=== PATIENT | female | born 1990 | race Caucasian/White ===

== ENCOUNTER 2016-10-06 09:42 | Emergency (ER) | payer OTHER ==
[~2016-10-06] VITALS: Ht 160 cm; Wt 74.8 kg
[~2016-10-06 09:42] MED LIST: PREN1TAB11 PO; UNIS25TA2 PO
[2016-10-06] MEDS ORDERED: KETOROLAC 30 MG/ML VIAL (J1885) IV ONE (10:15)
[2016-10-06] MEDS ORDERED: KETOROLAC 30 MG/ML VIAL (J1885) As Ordered ONE (10:16)
--- NOTE | 2016-10-06 12:04 | REP ---
PELVIC ULTRASOUND: Real-time sonographic evaluation of the pelvis is performed utilizing transabdominal and endovaginal technique. The urinary bladder measures 4.7 x 1.6 x 5.5 cm. The uterus measures 8.2 x 4.1 x 6.1 cm. The endometrial thickness is 10 mm. No endometrial fluid collection. The right ovary measures 4.2 x 2.6 x 3.8 cm and the left ovary 3.7 x 2.2 x 2.5 cm. Two complex cystic structures in the right ovary measure 2.1 x 2.2 x 2.2 cm and 2.9 x 1.5 x 2.3 cm. There is mild free fluid. There is no evidence of ovarian torsion with blood flow seen in each ovary with duplex Doppler evaluation. IMPRESSION: Two small complex cystic structures in the right ovary may represent complex follicles. Mild free fluid. No torsion. Signed by Enrrique Cervantes MD 10/06/2016 05:03 P
[2016-10-06] MEDS ORDERED: ULTR50TA PO (12:16)
[2016-10-06 12:31] VITALS: BP 133/81
== END 2016-10-06 12:32 | disposition home or self-care (01) ==
LOC: M ED 10:27
DX: R10.2 Pelvic and perineal pain (principal); Z79.899 Other long term (current) drug therapy
CPT/HCPCS: 76830; 76856; 81001; 81025; 87210; 87491; 87591; 93976; 96374; 96376; 99284; J1885

== ENCOUNTER 2017-07-16 12:45 | Emergency (ER) | payer OTHER ==
[~2017-07-16] VITALS: Ht 160 cm; Wt 70.5 kg
[~2017-07-16 12:45] MED LIST changes: +ULTR50TA8 PO
[2017-07-16] MEDS ORDERED: TYLE325T5 PO (12:53)
[2017-07-16 14:47] VITALS: BP 131/69
--- NOTE | 2017-07-16 14:47 | REP ---
FIRST TRIMESTER OB ULTRASOUND: 07/16/2017 CLINICAL HISTORY: Pelvic cramping. 7 weeks 3 days by LMP. Transabdominal imaging is utilized. Uterus is slightly retroflexed. There is a gestational sac in the fundus. Within the gestational sac, is a pole with a crown-rump length of 1.1 cm, corresponding to 7 weeks 2 days which would give an EDC of 03/02/2018. heart activity noted at 162. No subchorionic bleed identified. No mass in the adnexal region. No free fluid in the cul-de-sac or adjacent the adnexa. IMPRESSION: 1. Single intrauterine gestation at 7 weeks 2 days by crown-rump length which would give an EDC of 03/02/2018, by LMP, EDC 03/01/2018. 2. Heart rate 162 and regular. No subchorionic bleed. No adnexal mass or free fluid. Signed by Mansoor Vallecillo MD 07/16/2017 06:56 P
== END 2017-07-16 14:58 | disposition home or self-care (01) ==
LOC: M ED 12:45
DX: O26.891 Other specified pregnancy related conditions, first trimester (principal); R10.2 Pelvic and perineal pain; M54.5 Low back pain; Z3A.01 Less than 8 weeks gestation of pregnancy; O09.291 Supervision of pregnancy with other poor reproductive or obstetric history, first trimester; Z98.890 Other specified postprocedural states

== ENCOUNTER → 2017-09-11 | Outpatient (REF) | payer OTHER | LOC: M SFHCLERA 13:53 | DX: R81 Glycosuria (principal) | CPT/HCPCS: 87086 ==

== ENCOUNTER 2017-12-22 12:46 | Outpatient (CLI) | payer OTHER ==
[2017-12-22] MEDS: ACETAMINOPHEN 500 MG TAB PO (14:06)
== END 2017-12-22 16:30 | disposition home or self-care (01) ==
LOC: M LDO 12:46
DX: O26.893 Other specified pregnancy related conditions, third trimester (principal); R10.30 Lower abdominal pain, unspecified; Z3A.30 30 weeks gestation of pregnancy
CPT/HCPCS: 76815

== ENCOUNTER 2018-01-22 08:02 | Outpatient (CLI) | payer OTHER | END 2018-01-22 08:58 | disposition home or self-care (01) | LOC: M LDO 08:02 | DX: Z36.89 Encounter for other specified antenatal screening (principal); Z3A.00 Weeks of gestation of pregnancy not specified | CPT/HCPCS: 59025 ==

== ENCOUNTER 2018-02-11 15:40 | Inpatient (IN) | payer OTHER ==
[2018-02-11] MEDS: LACTATED RINGER'S 1000 ML IV (17:45)
[2018-02-11 18:05] LABS: HEMATOCRIT 35.6 % (36.0-47.0); HEMOGLOBIN 11.9 g/dl (12.0-15.5); MEAN CORPUSCULAR HGB CONC 33.4 g/dl (32.0-36.5); MEAN CORPUSCULAR VOLUME 92.7 fl (80.0-96.0); PLATELET COUNT, AUTOMATED 127 10^3/uL (150-450); RED BLOOD COUNT 3.84 10^6/uL (4.00-5.40); RED CELL DISTRIBUTION WIDTH 13.8 % (11.5-14.5); WHITE BLOOD COUNT 17.5 10^3/uL (4.0-10.0)
[2018-02-11] MEDS: LR 1,000 ML IV (18:09)
[2018-02-11 18:10] LABS: AMORPHOUS SEDIMENT SMALL (NEGATIVE); APPEARANCE, URINE CLOUDY (CLEAR); BACTERIA, URINE AUTO NEGATIVE (NEGATIVE); BILIRUBIN, URINE AUTO NEGATIVE (NEGATIVE); BLOOD, URINE BLOOD NEGATIVE (NEGATIVE); COLOR, URINE AMBER (YELLOW); GLUCOSE, URINE (UA) AUTO 1+ mg/dL (NEGATIVE); KETONE, URINE AUTO TRACE mg/dL (NEGATIVE); LEUKOCYTE ESTERASE, URINE AUTO 1+ (NEGATIVE); MUCUS, URINE LARGE (NEGATIVE); NITRITE, URINE AUTO NEGATIVE (NEGATIVE); PROTEIN, URINE AUTO NEGATIVE (NEGATIVE); RBC, URINE AUTO 1 /HPF (0-3); SPECIFIC GRAVITY URINE AUTO 1.017 (1.002-1.035); SQUAMOUS EPITHELIAL CELL UR AU 8 /HPF (0-6); UROBILINOGEN, URINE AUTO 0.2 mg/dL (0.0-2.0); WBC, URINE AUTO 7 /HPF (0-3)
[2018-02-11 18:38] LABS: ALBUMIN 2.5 GM/DL (3.2-5.2); ALBUMIN/GLOBULIN RATIO 0.68 (1.00-1.93); ALKALINE PHOSPHATASE 100 U/L (45-117); ALT/SGPT 17 U/L (12-78); ANION GAP 8 MEQ/L (8-16); AST/SGOT 14 U/L (7-37); BILIRUBIN,TOTAL 0.3 MG/DL (0.2-1.0); BLOOD UREA NITROGEN 6 MG/DL (7-18); CARBON DIOXIDE LEVEL 23 MEQ/L (21-32); CHLORIDE LEVEL 106 MEQ/L (98-107); CREATININE FOR GFR 0.48 MG/DL (0.55-1.30); GLOMERULAR FILTRATION RATE > 60.0 (>60); GLUCOSE, FASTING 77 MG/DL (70-100); LIPASE 130 U/L (73-393); POTASSIUM SERUM 4.1 MEQ/L (3.5-5.1); SODIUM LEVEL 137 MEQ/L (136-145); TOTAL PROTEIN 6.2 GM/DL (6.4-8.2)
[2018-02-11] MEDS: ACETAMINOPHEN 325 MG TAB PO (20:12)
[2018-02-11] MEDS: AMPICILLIN SOD/SULBACTAM SOD 3 GM in D5W MINI-BAG PLUS 100 ML IV (20:25)
[2018-02-11] MEDS: GASTROGRAFIN SOLUTION 30ML PO ×2 (20:35→21:05)
[2018-02-11] MEDS ORDERED: ISOVUE-370 76% 100ML VIAL (Q9967) As Ordered (21:51)
[2018-02-11] MEDS ORDERED: OXYTOCIN 30 UNITS IN 0.9% NaCl 500ML IV BAG (J2590) As Ordered (23:29)
[2018-02-11] MEDS: OXYTOCIN DRIP 30 UNITS in APPROPRIATE DILUENT 1 EA IV (23:45)
[2018-02-12] MEDS: LR 1,000 ML IV ×2 (00:56→08:49)
[2018-02-12] MEDS: AMPICILLIN SOD/SULBACTAM SOD 3 GM in D5W MINI-BAG PLUS 100 ML IV ×4 (02:02→20:14)
[2018-02-12] MEDS: ACETAMINOPHEN TAB 650MG DOSE (2X325MG) PO ×4 (02:53→20:27)
[2018-02-12] MEDS ORDERED: FENTANYL 2MCG/ML ROPIVACAINE 0.2% IN 0.9% NACL 200ML IVBAG As Ordered (08:51)
[2018-02-12] MEDS: PRENATAL VITAMINS CHEWABLE TABLET PO (09:00)
[2018-02-12] MEDS ORDERED: ePHEDrine SULFATE 25 MG/5 ML(5MG/ML) SYRINGE As Ordered (09:56)
[2018-02-12] MEDS ORDERED: ONDANSETRON 4MG/2ML VIAL (J2405) IV ×2 (10:00→13:15)
[2018-02-12] MEDS ORDERED: ePHEDrine SULFATE 25 MG/5 ML(5MG/ML) SYRINGE IV ×2 (10:00→11:00)
[2018-02-12] MEDS ORDERED: diphenhydrAMINE INJ 50MG/ML VIAL (J1200) IV (10:00)
[2018-02-12] MEDS ORDERED: FENTANYL/ROPIVACAINE/NACL BAG 200 ML EPIDURAL (10:00)
[2018-02-12] MEDS ORDERED: EPIDURAL COMMENT XX (10:00)
[2018-02-12] MEDS ORDERED: NALOXONE INJ 0.4 MG/1 ML VIAL (J2310) IV (10:00)
[2018-02-12] MEDS ORDERED: REFRIGERATOR IV KEYS XX (10:00)
[2018-02-12] MEDS ORDERED: EPIDURAL/PCA KEYS XX (10:00)
[2018-02-12] MEDS ORDERED: LACTATED RINGER'S 1000 ML IV ×2 (10:00→11:00)
[2018-02-12] MEDS ORDERED: DOCUSATE SODIUM 100 MG CAP PO (13:15)
[2018-02-12] MEDS ORDERED: MEASLES,MUMPS,RUBELLA VACCINE INJ (MMR-II) (90707) SC (13:15)
[2018-02-12] MEDS ORDERED: METHYLERGONOVINE MALEATE 0.2 MG TAB PO (13:15)
[2018-02-12 13:24] LABS: CORD GAS ABE V -5.4; CORD GAS HCO3 V 20.5 MEQ/L; CORD GAS PCO2 V 41.5 mmHg; CORD GAS PH V 7.312 UNITS; CORD GAS PO2 V 19.9 mmHg; CORD GAS SBC V 18.9 MEQ/L; CORD GAS TCO2 V 21.8 MEQ/L
[2018-02-12] MEDS: IBUPROFEN 600 MG TAB PO (18:20)
[2018-02-13] MEDS: AMPICILLIN SOD/SULBACTAM SOD 3 GM in D5W MINI-BAG PLUS 100 ML IV ×2 (01:42→08:04)
[2018-02-13] MEDS: OXYTOCIN DRIP 30 UNITS in APPROPRIATE DILUENT 1 EA IV (03:18)
[2018-02-13] MEDS: IBUPROFEN 600 MG TAB PO ×3 (03:20→20:17)
[2018-02-13 07:00] LABS: HEMATOCRIT 34.3 % (36.0-47.0); HEMOGLOBIN 11.5 g/dl (12.0-15.5); MEAN CORPUSCULAR HEMOGLOBIN 30.7 pg (27.0-33.0); MEAN CORPUSCULAR HGB CONC 33.5 g/dl (32.0-36.5); MEAN CORPUSCULAR VOLUME 91.7 fl (80.0-96.0); PLATELET COUNT, AUTOMATED 123 10^3/uL (150-450); RED BLOOD COUNT 3.74 10^6/uL (4.00-5.40); RED CELL DISTRIBUTION WIDTH 13.9 % (11.5-14.5); WHITE BLOOD COUNT 10.1 10^3/uL (4.0-10.0)
[2018-02-13] MEDS: PRENATAL VITAMINS CHEWABLE TABLET PO (08:04)
[2018-02-13] MEDS: ACETAMINOPHEN TAB 650MG DOSE (2X325MG) PO ×3 (08:15→18:38)
[2018-02-14] MEDS: IBUPROFEN 600 MG TAB PO ×2 (02:26→08:22)
[2018-02-14] MEDS: PRENATAL VITAMINS CHEWABLE TABLET PO (08:19)
[2018-02-14] MEDS: DIBUCAINE 1% OINTMENT 30GM TOP (08:21)
== END 2018-02-14 11:30 | disposition home or self-care (01) | DRG 775 ==
LOC: M LDO 15:40 → M LDI 17:13 → M OBS 02-12 15:30 → M LDI 17:13
PROC: 10E0XZZ Delivery of Products of Conception, External Approach (ICD-10-PCS; principal; 2018-02-12)
PROC: 10907ZC Drainage of Amniotic Fluid, Therapeutic from Products of Conception, Via Natural or Artificial Opening (ICD-10-PCS; 2018-02-12)
PROC: 3E033VJ Introduction of Other Hormone into Peripheral Vein, Percutaneous Approach (ICD-10-PCS; 2018-02-12)
DX: O41.1030 Infection of amniotic sac and membranes, unspecified, third trimester, not applicable or unspecified (principal); Z37.0 Single live birth; O99.824 Streptococcus B carrier state complicating childbirth; Z3A.37 37 weeks gestation of pregnancy; B96.20 Unspecified Escherichia coli [E. coli] as the cause of diseases classified elsewhere